=== PATIENT | male | born 2000 | race African-American/Black ===

== ENCOUNTER 2022-04-10 19:43 | Emergency (ER) | payer OTHER ==
[~2022-04-10] VITALS: Ht 188 cm; Wt 80.0 kg
[2022-04-10] MEDS ORDERED: ALBUTEROL (0.083%) 2.5MG/3ML NEB HHN STA (21:41)
[2022-04-10] MEDS ORDERED: PREDNISONE 20MG TABLET PO STA (21:41)
[2022-04-10] MEDS ORDERED: IPRATROPIUM BROMIDE (0.02%) 0.5MG/2.5ML NEB HHN STA (21:41)
[2022-04-10] MEDS ORDERED: ALBU6.7H3 INH (23:31)
[2022-04-10] MEDS ORDERED: P20 MT (23:31)
[2022-04-11] VITALS: BP 116/65
== END 2022-04-11 00:11 | disposition home or self-care (01) ==
LOC: ER 20:30
DX: J45.901 Unspecified asthma with (acute) exacerbation (principal); R03.0 Elevated blood-pressure reading, without diagnosis of hypertension
CPT/HCPCS: 71045; 93005; 94644; 99285; J7512; Z7610